=== PATIENT | female | born 1975 | race Hispanic/Latino ===

== ENCOUNTER 2024-07-14 09:51 | Day surgery (SDC) | payer OTHER ==
[~2024-07-14] VITALS: Ht 149.9 cm; Wt 54.4 kg
[~2024-07-14 09:51] MED LIST: BAYER ASPIRIN E81 MG PO; HYDREA500 MG PO; LORTAB 7.57.5 MG PO; NORCO1 TA1 PO; NORCO1 TA1 PR; ULTRAM50 M1 PO
[2024-07-14] MEDS ORDERED: FOLIC ACID1 MG PO (10:18)
[2024-07-14] MEDS ORDERED: LACTATED RINGER'S 1,000 ML IV ONE (10:22)
[2024-07-14 11:29] VITALS: BP 112/63
[2024-07-14] MEDS ORDERED: GLYCOPYRROLATE 0.2 MG/ML IV ONE (15:03)
[2024-07-14] MEDS ORDERED: PROPOFOL 200 MG/20 ML VIAL IV ONE (15:03)
[2024-07-14] MEDS ORDERED: LIDOCAINE HCL 2% 2ML SDV IV ONE (15:03)
== END 2024-07-14 11:56 | disposition home or self-care (01) | DRG 812 ==
LOC: ENDO 09:51
PROVIDERS: ATTEND Internal Medicine Gastroenterology
PROC: 0DJD8ZZ Inspection of Lower Intestinal Tract, Via Natural or Artificial Opening Endoscopic (ICD-10-PCS; principal; 2024-07-14)
PROC: 0DB98ZX Excision of Duodenum, Via Natural or Artificial Opening Endoscopic, Diagnostic (ICD-10-PCS; 2024-07-14)
PROC: 0DB78ZX Excision of Stomach, Pylorus, Via Natural or Artificial Opening Endoscopic, Diagnostic (ICD-10-PCS; 2024-07-14)
DX: D50.9 Iron deficiency anemia, unspecified (principal); K64.8 Other hemorrhoids; K29.70 Gastritis, unspecified, without bleeding; K31.89 Other diseases of stomach and duodenum